=== PATIENT | male | born 1965 | race Two or more races ===

== ENCOUNTER 2020-05-01 10:06 | Emergency (ER) | payer OTHER ==
[2020-05-01 10:12] VITALS: BP 163/90; PULSE 102; TEMP 97.9; BMI 27.4
== END 2020-05-01 11:26 | disposition home or self-care (01) ==
LOC: JER 10:06
DX: U07.1 COVID-19 (principal)
CPT/HCPCS: 99283-25; C9803; U0003

== ENCOUNTER 2021-11-03 16:13 | Emergency (ER) | payer OTHER ==
[2021-11-03 16:42] VITALS: BP 153/78; PULSE 80; RESP 18; TEMP 98.6; BMI 28.2
[2021-11-03] MEDS ORDERED: AMOX TR/POT CLAV 875MG/125MG TABLETS (FP) PO ONE (22:00)
[2021-11-03] MEDS ORDERED: OXYMETAZOLINE 0.05% NASAL SOLUTION 15 ML BOTTLE NS ONE (22:02)
[2021-11-03] MEDS ORDERED: AMOX TR/POT CLAV 875MG/125MG TABLETS (FP) ONE (22:04)
== END 2021-11-03 22:32 | disposition home or self-care (01) ==
LOC: JER 16:13
DX: S02.401A Maxillary fracture, unspecified side, initial encounter for closed fracture (principal); R04.0 Epistaxis; W20.8XXA Other cause of strike by thrown, projected or falling object, initial encounter
CPT/HCPCS: 70486-TC; 99284-25

== ENCOUNTER 2021-11-04 01:51 | Emergency (ER) | payer OTHER ==
[2021-11-04 02:20] VITALS: BP 131/95; PULSE 118; RESP 20; TEMP 98.4; BMI 28.4
[2021-11-04] MEDS ORDERED: OXYMETAZOLINE 0.05% NASAL SOLUTION 15 ML BOTTLE NS ONE (02:46)
== END 2021-11-04 03:52 | disposition home or self-care (01) ==
LOC: JER 01:51
DX: R04.0 Epistaxis (principal)
CPT/HCPCS: 99283-25